=== PATIENT | male | born 1980 | race American Indian/Alaskan Native ===

== ENCOUNTER 2016-08-20 01:07 | Emergency (ER) | payer SELFPAY ==
[2016-08-20] MEDS ORDERED: DUONEB 0.5 MG-3 MG/3 ML SOLN IH ONE (05:49)
[2016-08-20] MEDS ORDERED: DECADRON IM ONE (05:50)
--- NOTE | 2016-08-20 05:58 | Emergency Department Report ---
ED Shortness of Breath HPI - General Chief Complaint: Upper Respiratory Infection Stated Complaint: BRONCHITIS Time Seen by Provider: 08/20/16 05:45 Source: patient Mode of arrival: Ambulatory Limitations: No Limitations - History of Present Illness Initial Comments: Patient with hx of asthma and bronchitis states my bronchitis is acting up. NOTE: patient seen here 07/04/16 for similar cc (see report). States wheezing and experiencing shortness of breath x 4 days worsened today. Also reports cough up clear phlegm. States using his inhaler w/o resolution. Reports exposure to cigarette smoke at a sports bar prior to onset. Denies fever, chills, N/V, sore throat, chest pain or discomfort, coughing up blood, weakness or lightheadedness. Denies previous or current hx of smoking. No other acute complaints today. - Related Data Previous Rx's Medication Instructions Recorded Last Taken Type amLODIPine [Norvasc] 5 mg PO DAILY #30 tab 06/27/15 07/03/16 Rx Prednisone [predniSONE 10 mg 10 mg PO .TAPER #1 tab.ds.pk 07/04/16 Unknown Rx (6-Day Pack, 21 Tabs)] ALBUTEROL Inhaler [ProAir HFA 2 puff IH QID PRN #1 inhalation 08/20/16 Unknown Rx Inhaler] Azithromycin [Zithromax TAB] 500 mg PO QDAY #3 tablet 08/20/16 Unknown Rx Allergies Allergy/AdvReac Type Severity Reaction Status Date / Time No Known Allergies Allergy Unverified 09/05/14 20:59 ED Review of Systems ROS: Stated complaint: BRONCHITIS Other details as noted in HPI Comment: All other systems reviewed and negative ED Past Medical Hx - Past Medical History Previous Medical History?: Yes Hx Hypertension: Yes Hx Asthma: Yes Additional medical history: BRONCHITIS, morbid Obesity - Surgical History Past Surgical History?: No - Social History Smoking Status: Never Smoker Substance Use Type: None - Medications Home Medications: Home Medications Medication Instructions Recorded Confirmed Last Taken Type amLODIPine [Norvasc] 5 mg PO DAILY #30 tab 06/27/15 07/04/16 07/03/16 Rx Prednisone [predniSONE 10 mg 10 mg PO .TAPER #1 tab.ds.pk 07/04/16 Unknown Rx (6-Day Pack, 21 Tabs)] ALBUTEROL Inhaler [ProAir HFA 2 puff IH QID PRN #1 inhalation 08/20/16 Unknown Rx Inhaler] Azithromycin [Zithromax TAB] 500 mg PO QDAY #3 tablet 08/20/16 Unknown Rx ED Physical Exam - General Limitations: No Limitations General appearance: alert, in no apparent distress, obese - Head Head exam: Present: atraumatic, normocephalic - Eye Eye exam: Present: normal appearance, PERRL, EOMI. Absent: scleral icterus, conjunctival injection, periorbital swelling, periorbital tenderness - ENT ENT exam: Present: normal exam, mucous membranes moist, TM's normal bilaterally , normal external ear exam - Neck Neck exam: Present: normal inspection, full ROM. Absent: tenderness, lymphadenopathy - Respiratory Respiratory exam: Present: wheezes (b/l expiratory wheeze.). Absent: respiratory distress, rales, rhonchi, stridor, chest wall tenderness, accessory muscle use, decreased breath sounds, prolonged expiratory - Cardiovascular Cardiovascular Exam: Present: regular rate, normal rhythm - Extremities Exam Extremities exam: Present: normal inspection, full ROM - Neurological Exam Neurological exam: Present: alert, oriented X3 - Psychiatric Psychiatric exam: Present: normal affect, normal mood - Skin Skin exam: Present: warm, dry, intact, normal color. Absent: rash, cyanosis, diaphoretic, erythema, pallor ED Course Vital Signs 08/20/16 01:14 Temperature 98.4 F Pulse Rate 86 Respiratory 18 Rate Blood Pressure 136/90 - Reevaluation(s) Reevaluation #1: 08/20/16 06:49 Patient states he feels a little better post Duoneb x 1. He awaits Decadron shot at this time. Wheezing improved. He will be DC'd on new albuterol inhaler and zithromax (see rx). Patient instructed to avoid triggers, use meds as prescribed, and f/u with his PCP. Return instructions also provided. He verbalized understanding and is agreeable to plan. Critical care attestation.: If time is entered above; I have spent that time in minutes in the direct care of this critically ill patient, excluding procedure time. ED Disposition Clinical Impression: Asthmatic bronchitis with acute exacerbation Disposition: DISCHARGED TO HOME OR SELFCARE Is pt being admited?: No Does the pt Need Aspirin: No Condition: Stable Instructions: Asthma (ED) Additional Instructions: Follow instructions for care. Avoid allergens and known triggers. Use medication as prescribed. Follow up with your PCP for follow up. Return to ED for new or worsening symptoms. Prescriptions: ALBUTEROL Inhaler [ProAir HFA Inhaler] 2 puff IH QID PRN #1 inhalation PRN Reason: Shortness Of Breath Azithromycin [Zithromax TAB] 500 mg PO QDAY #3 tablet Referrals: PRIMARY CARE, [Primary Care Provider] - 24 Hours [facility] [Outside] - 24 Hours
[2016-08-20 07:02] VITALS: BP 161/94
== END 2016-08-20 07:10 | disposition home or self-care (01) ==
LOC: ED 01:07
DX: J45.901 Unspecified asthma with (acute) exacerbation (principal); I10 Essential (primary) hypertension
CPT/HCPCS: 94640; 96372; 99282; J1100